=== PATIENT | male | born 1960 | race Two or more races ===

== ENCOUNTER 2016-06-18 16:40 | Emergency (ER) | payer BC ==
[2016-06-18 19:17] VITALS: BP 149/89
== END 2016-06-18 19:17 | disposition home or self-care (01) ==
LOC: ED 16:40
DX: S39.012A Strain of muscle, fascia and tendon of lower back, initial encounter (principal); I10 Essential (primary) hypertension; V49.9XXA Car occupant (driver) (passenger) injured in unspecified traffic accident, initial encounter; Y93.89 Activity, other specified; Y99.8 Other external cause status; Y92.89 Other specified places as the place of occurrence of the external cause